=== PATIENT | male | born 1990 | race Caucasian/White ===

== ENCOUNTER 2018-03-28 14:30 | Emergency (ER) | payer SELFPAY ==
--- NOTE | 2018-03-28 14:40 | ED Physician Documentation ---
Psychological Disorders - HISTORIAN Historian: patient - HPI Stated Complaint: suicidal ideations Chief Complaint: Psychological Disorder Onset: other (constant ) Duration: sudden onset Intent: suicide Severity: mild Situational Problems: Yes (he says "home" ) Further Comments: yes (He states he was discharged from [facility] inpt psychatric tse yesterday. He states that he was seen today by his PCP and they told him to go to his psych provider - they then called for appt and the psych provider stated to come to the nearest ER. He and his mom state they are frustrated about no one helping them. He states he now is wanting to kill himself via "a bunch of pills and I will do it" states he has not taken any other pills other that RX meds. Denies any other complaints.) - Associated Symptoms Symptoms: depressed, angry, agitated Suicidal: specific plan Mechanism: overdose - ROS CONST: none NEURO/PSYCH: anxiety, depression - PAST HX Psychiatric problems: depression, psychiatric problems Immunizations: UTD Allergies/Adverse Reactions: Allergies Allergy/AdvReac Type Severity Reaction Status Date / Time No Known Allergies Allergy Verified 03/28/18 14:45 - Social HX Smoking History: cigarettes Marital Status: single Drug Use: marijuana - Family HX Family HX: other (none stated ) - VITAL SIGNS Vital Signs: Vital Signs Temp Pulse Resp BP Pulse Ox 97.9 F 124 H 18 177/109 98 03/28/18 14:30 03/28/18 14:30 03/28/18 14:30 03/28/18 14:30 03/28/18 14:30 - REVIEWED ASSESSMENTS Nursing Assessment Reviewed: Yes Vitals Reviewed: Yes Progress - Progress Progress: 1530: parents aware waiting on orders and calls for placement - he would like to return to [facility] if possible DG 1800: [facility] states the previous physician who was his admitting is on today and he is refusing to take the pt. DG 1830: [facility] [place] beds will fax info. He is having increasing anxiety and is requesting more medication DG 2015: [facility] call returned - with file - per staff DG 2330: [facility] will consider transfer DG 2325: Dr Virgen HARPER at [facility] will admit ED Results Lab/Radiology - Lab Results Lab Results: Lab Results 03/28/18 03/28/18 03/28/18 Unknown Unknown Unknown WBC RBC Hgb Hct MCV MCH MCHC RDW Plt Count Neut % (Auto) Lymph % (Auto) [place] % (Auto) Eos % (Auto) Baso % (Auto) Neut # (Auto) Lymph # (Auto) Brule # (Auto) Eos # (Auto) Baso # (Auto) Sodium Potassium Chloride Carbon Dioxide BUN Creatinine Estimated Creat Clear Est GFR ( Amer) Est GFR (Non-Af Amer) Glucose Calcium Total Bilirubin AST ALT Alkaline Phosphatase Total Protein Albumin Vitamin B12 764 pg/mL pg/mL (211-946) Folate 7.2 ng/mL ng/mL (>4.50) TSH 4.260 uIU/mL H uIU/mL (0.270-4.200) Free T4 Index 1.26 ng/dL ng/dL (0.93-1.70) Free T3 Index 3.43 pg/mL pg/mL (2.00-4.40) Urine Color Urine Appearance Urine pH Ur Specific [place] Urine Protein Urine Ketones Urine Occult Blood Urine Nitrite Urine Bilirubin Urine Urobilinogen Ur Leukocyte Esterase Urine Glucose Opiates Screen Negative ng/mL ng/mL (<300) Oxycodone Screen Negative ng/mL ng/mL (<100) Methadone Screen Negative ng/mL ng/mL (<200) Acetaminophen Ur Barbiturates Screen Negative ng.mL ng.mL (<200) Tricyclic Antidepress Negative ng/mL ng/mL (<300) Phencyclidine Screen Negative ng/mL ng/mL (< 25) Amphetamines Screen Negative ng/mL ng/mL (<500) U Methamphetamines Scrn Negative ng/mL ng/mL (<500) MDMA Negative ng/mL ng/mL (<500) Benzodiazepines Screen Non negative ng/mL H ng/mL (<150) Urine Cocaine Screen Negative ng/mL ng/mL (<150) U Cannabinoids Screen Negative ng/mL ng/mL (< 50) Ethyl Alcohol 03/28/18 03/28/18 03/28/18 Unknown 15:30 15:17 WBC 14.50 K/ul H K/ul (4.00-12.00) RBC 4.90 M/ul M/ul (3.90-5.20) Hgb 15.1 g/dL g/dL (12.0-18.0) Hct 44.5 % % (37.0-53.0) MCV 91.0 fl fl (80.0-100.0) MCH 30.8 pg pg (28.0-34.0) MCHC 34.0 g/dL g/dL (30.0-36.0) RDW 12.3 % % (11.3-14.3) Plt Count 284 K/mm3 K/mm3 (130-400) Neut % (Auto) 82.5 % H % (39.0-79.0) Lymph % (Auto) 9.4 % L % (16.0-50.0) Brule % (Auto) 5.7 % % (0.0-11.0) Eos % (Auto) 1.9 % % (0.0-6.8) Baso % (Auto) 0.5 (0.0-1.5) Neut # (Auto) 11.9 # k/uL H # k/uL (1.4-7.7) Lymph # (Auto) 1.4 # k/uL # k/uL (0.6-4.0) Brule # (Auto) 0.8 # k/uL # k/uL (0.0-0.9) Eos # (Auto) 0.3 # k/uL # k/uL (0.0-0.6) Baso # (Auto) 0.1 # k/uL # k/uL (0.0-0.5) Sodium 139 mmol/L mmol/L (136-145) Potassium 3.6 mmol/L mmol/L (3.5-5.1) Chloride 98 mmol/L mmol/L (98-107) Carbon Dioxide 30 mmol/L mmol/L (22-30) BUN 14 mg/dL mg/dL (9-20) Creatinine 0.90 mg/dL mg/dL (0.66-1.25) Estimated Creat Clear 105 Est GFR ( Amer) > 60 (60 - ) Est GFR (Non-Af Amer) > 60 (60 - ) Glucose 95 mg/dL mg/dL (74-106) Calcium 9.2 mg/dL mg/dL (8.4-10.2) Total Bilirubin 1.0 mg/dL mg/dL (0.2-1.3) AST 22 U/L U/L (15-46) ALT 24 U/L U/L (13-69) Alkaline Phosphatase 63 U/L U/L (38-126) Total Protein 7.4 g/dL g/dL (6.3-8.2) Albumin 4.8 g/dL g/dL (3.5-5.0) Vitamin B12 Folate TSH Free T4 Index Free T3 Index Urine Color Yellow (YELLOW) Urine Appearance Clear (CLEAR) Urine pH 7.0 (5.0 - 8.0) Ur Specific [place] 1.020 (1.010-1.030) Urine Protein Negative mg/dL mg/dL (NEGATIVE) Urine Ketones Negative mg/dL mg/dL (NEGATIVE) Urine Occult Blood Negative (NEGATIVE) Urine Nitrite Negative (NEGATIVE) Urine Bilirubin Negative (NEGATIVE) Urine Urobilinogen 0.2 Eu Eu (0.2-1.0) Ur Leukocyte Esterase Negative (NEGATIVE) Urine Glucose Negative mg/dL mg/dL (NEGATIVE) Opiates Screen Oxycodone Screen Methadone Screen Acetaminophen < 4.0 ug/mL L ug/mL (10-30) Ur Barbiturates Screen Tricyclic Antidepress Phencyclidine Screen Amphetamines Screen U Methamphetamines Scrn MDMA Benzodiazepines Screen Urine Cocaine Screen U Cannabinoids Screen Ethyl Alcohol < 10.0 mg/dL mg/dL (0.0-10.0) - Radiology Radiology Impressions: Examination: PA and lateral chest. History: Evaluate lung [place]. Findings: PA and lateral views of the chest demonstrates a normal cardiac and mediastinal silhouette. No focal infiltrate. No blunting of the costophrenic margins. Osseous structures are appropriate for age. Impression: No acute pulmonary process. Electronically signed on Mar 28, 2018 3:38:33 PM NURSE TECH by: Zachary Tan - Orders Orders: ED Orders Category Date Time Status Place IV Lock 1T Care 03/28/18 14:47 Active CHEST 2VIEW [RAD] Stat Exams 03/28/18 Taken ACETAMINOPHEN LEVEL Routine Lab 03/28/18 15:30 Completed ALCOHOL MEDICAL USE ONLY Routine Lab 03/28/18 15:30 Completed BENZODIAZEPINES, QUANT, URINE Routine Lab 03/28/18 15:17 Received CBC/PLATELET/DIFF Routine Lab 03/28/18 Completed CMP Routine Lab 03/28/18 15:30 Completed DRUG SCREEN URINE MEDICAL ONLY Routine Lab 03/28/18 Completed THYROID PANEL (TSH, FT3, FT4) Stat Lab 03/28/18 Completed UA MACRO DIP ONLY Routine Lab 03/28/18 15:17 Completed VITAMIN B12/FOLATE Stat Lab 03/28/18 Completed LORazepam [Ativan] Med 03/28/18 14:48 Discontinued 1 mg PO NOW ONE LORazepam [Ativan] Med 03/28/18 18:30 Discontinued 1 mg PO NOW ONE LORazepam [Ativan] Med 03/28/18 23:54 Once 1 mg PO NOW ONE traZODone HCL [Desyrel] Med 03/28/18 21:00 Ordered 50 mg PO HS EKG WITH COMPARISON Stat Ther 03/28/18 Ordered Psych Physical Exam - Physical Exam General Appearance: alert, mild distress ENT: nml ENT inspection, pharynx nml Eyes: PERRL Mental Status: suicidal ideation, depressed affect / mood (anxious - pacing in room ) Suicide Attempts: still contemplating Orientation: nml x3 Cranial Nerves: CN's intact as tested Sensory, Motor: nml motor response Neck/Back: normal inspection Respiratory: no resp distress, chest non-tender, breath sounds normal CVS: reg rate & rhythm, heart sounds normal Abdomen: non-tender Skin: warm/dry, normal color Extremities: non-tender Discharge Clincal Impression: Suicidal ideations Referrals: Primary Doctor,No [Primary Care Provider] - 2 Days Comments: [facility] [id number] Condition: Fair Disposition: 02 XFER S[facility]M HOSP Decision to Admit: NO Date of Decison to Admit: 03/28/18 Decision Time: 23:25
[2018-03-28] MEDS ORDERED: LORazepam 1 MG TABLET PO ONE ×3 (14:48→23:54)
[2018-03-28 15:42] LABS: MEAN CORPUSCULAR HEMOGLOBIN 30.8 pg (28.0-34.0)
[2018-03-28 15:43] LABS: BASOPHILS % 0.5 (0.0-1.5); EOSINOPHILS % 1.9 % (0.0-6.8); MONOCYTES % 5.7 % (0.0-11.0); NEUTROPHILS # 11.9 # k/uL (1.4-7.7)
[2018-03-28 15:57] LABS: CANNABINOIDS NEGATIVE ng/mL (< 50); METHYLENEDIOXYMETHAMPHETAMINE NEGATIVE ng/mL (<500)
[2018-03-28 16:08] LABS: eGFR (Non-African) > 60
[2018-03-28 18:26] LABS: APPEARANCE,URINE CLEAR (CLEAR); COLOR,URINE YELLOW (YELLOW); OCCULT BLOOD,URINE NEGATIVE (NEGATIVE); UROBILINOGEN URINE 0.2 Eu (0.2-1.0)
[2018-03-28] MEDS: traZODone HCL 50 MG TABLET PO SCH ×2 (20:14→22:15)
[2018-03-29 00:31] VITALS: BP 136/92
--- NOTE | 2018-03-29 03:09 | Diagnostic Imaging Report ---
NUSRAT GREEN [facility] [address] [facility] [address] [place], [place]. [address] Report Submission Date: Mar 28, 2018 3:38:33 PM [employer] Patient Study Name: TAMMIE BAÑUELOS Date: Mar 28, 2018 2:49:35 PM [employer] Modality Type: DX Gender: M Description: CHEST : 88 Institution: [facility] Physician: NUSRAT GREEN Examination: PA and lateral chest. History: Evaluate lung [place]. Findings: PA and lateral views of the chest demonstrates a normal cardiac and mediastinal silhouette. No focal infiltrate. No blunting of the costophrenic margins. Osseous structures are appropriate for age. Impression: No acute pulmonary process. Electronically signed on Mar 28, 2018 3:38:33 PM TH[employer] GRADE TE[employer]ER by: Zachary DIXON
== END 2018-03-29 00:20 | disposition short-term general hospital (02) ==
LOC: ED 14:30
DX: R45.851 Suicidal ideations (principal); Z79.899 Other long term (current) drug therapy
CPT/HCPCS: 36415; 71046; 80053; 80320; 80377; 81002; 82608; 82746; 84439; 84443; 84481; 85025; 99285; G0480; G0481